=== PATIENT | female | born 1990 | race Caucasian/White ===

== ENCOUNTER → 2019-04-06 | Outpatient (CLI) | payer MEDICAID ==
--- NOTE | 2019-04-06 15:41 | RADIOLOGY IMAGING REPORT ---
FACILITY: [facility] - [place] PATIENT NAME: Samira Cuellar : 1990 MR: [id number] V: [id number] EXAM DATE: ORDERING PHYSICIAN: SHAVONNE CHESTER TECHNOLOGIST: [place] [facility] [place] Cu[place] : 1990 Visit/Account:[id number] Date of Sevice: 04/06/2019 Transvaginal pelvic ultrasound INDICATION: Dysmenorrhea COMPARISON: None Available FINDINGS: Uterus measures 6.8 x 3.3 x 4.5 cm. Double wall endometrial stripe measures There is mild free fluid in the cul-de-sac. Urinary bladder is empty. Pelvic vessels appear unremarkable on this examination. Right ovary measures 3.4 x 2.3 x 2.8 cm and shows normal blood flow and contains several small follic les. Left ovary measures 3.9 x 2.4 x 2.6 cm and shows normal blood flow and contains several small follicl es. IMPRESSION: 1. No acute findings. 2. Mild free fluid within the pelvis, likely physiologic. Report Dictated By: Roger Liu MD at 04/06/2019 3:36 PM Report E-Signed By: Roger Liu MD at 04/06/2019 3:37 PM WSN:[id number]
== END ==
LOC: US 14:11
PROVIDERS: ATTEND Family Medicine
DX: N94.6 Dysmenorrhea, unspecified (principal)
CPT/HCPCS: 76830